=== PATIENT | male | born 1945 | race Caucasian/White ===

== ENCOUNTER → 2017-04-05 | Outpatient (CLI) | payer MEDICARE, OTHER ==
[~2017-04-05] VITALS: Ht 175.3 cm; Wt 91.0 kg
[~2017-04-05] MED LIST: ALBU8HFA IH; ALLO300 PO; AMLO-511 PO; ASPI81 PO; CETI-290 PO; FLUT16H NASAL; LOSA25TA21 PO; MONT10TA21 PO; OMEP20 PO; SIMV-261 PO; TRAM50TA4 PO; TRIA1TAB91 PO; UMEC1DIS IH
[2017-04-05 13:02] VITALS: BP 138/68
== END | disposition home or self-care (01) ==
LOC: SRCNTR 12:48
PROVIDERS: ATTEND Internal Medicine Critical Care Medicine
DX: J44.1 Chronic obstructive pulmonary disease with (acute) exacerbation (principal); J90 Pleural effusion, not elsewhere classified; I10 Essential (primary) hypertension; E78.2 Mixed hyperlipidemia; M10.00 Idiopathic gout, unspecified site; I72.3 Aneurysm of iliac artery; D50.0 Iron deficiency anemia secondary to blood loss (chronic)
CPT/HCPCS: G0463

== ENCOUNTER → 2017-06-28 | Outpatient (CLI) | payer MEDICARE, OTHER ==
[~2017-06-28] VITALS: Ht 175.3 cm; Wt 92.0 kg
[2017-06-28 11:36] VITALS: BP 115/67
== END | disposition home or self-care (01) ==
LOC: SRCNTR 11:34
PROVIDERS: ATTEND Internal Medicine Critical Care Medicine
DX: J90 Pleural effusion, not elsewhere classified (principal); J44.1 Chronic obstructive pulmonary disease with (acute) exacerbation; I10 Essential (primary) hypertension; E78.2 Mixed hyperlipidemia; M10.00 Idiopathic gout, unspecified site; I72.3 Aneurysm of iliac artery; D50.0 Iron deficiency anemia secondary to blood loss (chronic)
CPT/HCPCS: G0463

== ENCOUNTER → 2017-09-01 | Outpatient (CLI) | payer MEDICARE, OTHER ==
[~2017-09-01] VITALS: Ht 175.3 cm; Wt 90.0 kg
[2017-09-01 11:00] VITALS: BP 105/51
== END | disposition home or self-care (01) ==
LOC: SRCNTR 10:57
PROVIDERS: ATTEND Internal Medicine Critical Care Medicine
DX: J90 Pleural effusion, not elsewhere classified (principal); J94.8 Other specified pleural conditions; J44.1 Chronic obstructive pulmonary disease with (acute) exacerbation; I10 Essential (primary) hypertension; E78.2 Mixed hyperlipidemia; M10.00 Idiopathic gout, unspecified site; I72.3 Aneurysm of iliac artery; D50.0 Iron deficiency anemia secondary to blood loss (chronic)
CPT/HCPCS: G0463

== ENCOUNTER → 2017-12-08 | Outpatient (CLI) | payer MEDICARE, OTHER ==
[~2017-12-08] VITALS: Ht 175.3 cm; Wt 89.0 kg
[~2017-12-08] MED LIST changes: +CETI-170 PO; -CETI-290 PO; -LOSA25TA21 PO; +LOSA25TA41 PO
[2017-12-08 13:54] VITALS: BP 115/65
== END | disposition home or self-care (01) ==
LOC: SRCNTR 13:53
PROVIDERS: ATTEND Internal Medicine Critical Care Medicine
DX: Z23 Encounter for immunization (principal); J90 Pleural effusion, not elsewhere classified; J44.1 Chronic obstructive pulmonary disease with (acute) exacerbation; J92.0 Pleural plaque with presence of asbestos; I10 Essential (primary) hypertension; E78.2 Mixed hyperlipidemia; M10.00 Idiopathic gout, unspecified site; I72.3 Aneurysm of iliac artery; D50.0 Iron deficiency anemia secondary to blood loss (chronic); Z87.891 Personal history of nicotine dependence
CPT/HCPCS: 90471; 90686; G0463

== ENCOUNTER → 2018-03-20 | Outpatient (CLI) | payer MEDICARE, OTHER ==
[~2018-03-20] VITALS: Ht 175.3 cm; Wt 89.5 kg
[2018-03-20 13:41] VITALS: BP 112/60
== END | disposition home or self-care (01) ==
LOC: SRCNTR 13:29
PROVIDERS: ATTEND Internal Medicine Critical Care Medicine
DX: E78.5 Hyperlipidemia, unspecified (principal); I10 Essential (primary) hypertension; N19 Unspecified kidney failure
CPT/HCPCS: G0463

== ENCOUNTER → 2019-10-24 | Outpatient (CLI) | payer MEDICARE, OTHER ==
[~2019-10-24] VITALS: Ht 177.8 cm; Wt 88.0 kg
[~2019-10-24] MED LIST changes: +ALLO-45 PO; -ALLO300 PO; +AMLO-257 PO; -AMLO-511 PO; +ASPI-728 PO; -ASPI81 PO; -CETI-170 PO; +CETI-450 PO; +LOSA25TA21 PO; -LOSA25TA41 PO; +MONT-35 PO; -MONT10TA21 PO
[2019-10-24 11:02] VITALS: BP 120/60
== END | disposition home or self-care (01) ==
LOC: SRCNTR 10:59
PROVIDERS: ATTEND Internal Medicine Critical Care Medicine
DX: I12.9 Hypertensive chronic kidney disease with stage 1 through stage 4 chronic kidney disease, or unspecified chronic kidney disease (principal); N18.9 Chronic kidney disease, unspecified; E78.5 Hyperlipidemia, unspecified; M10.9 Gout, unspecified; D64.9 Anemia, unspecified; J61 Pneumoconiosis due to asbestos and other mineral fibers; I72.8 Aneurysm of other specified arteries; J90 Pleural effusion, not elsewhere classified; Z98.890 Other specified postprocedural states; Z87.891 Personal history of nicotine dependence; Z79.899 Other long term (current) drug therapy; Z88.0 Allergy status to penicillin
CPT/HCPCS: G0463

== ENCOUNTER → 2021-01-05 | Outpatient (CLI) | payer MEDICARE, OTHER ==
[~2021-01-05] VITALS: Ht 177.8 cm; Wt 87.7 kg
[~2021-01-05] MED LIST changes: +ASPI-1450 PO; -ASPI-728 PO
[2021-01-05 12:20] VITALS: BP 151/76
== END | disposition home or self-care (01) ==
LOC: SRCNTR 11:02
PROVIDERS: ATTEND Internal Medicine Critical Care Medicine
DX: J90 Pleural effusion, not elsewhere classified (principal); J44.1 Chronic obstructive pulmonary disease with (acute) exacerbation; I10 Essential (primary) hypertension; E78.2 Mixed hyperlipidemia; M10.00 Idiopathic gout, unspecified site; I72.3 Aneurysm of iliac artery; D50.0 Iron deficiency anemia secondary to blood loss (chronic); J92.9 Pleural plaque without asbestos; J64 Unspecified pneumoconiosis
CPT/HCPCS: G0463

== ENCOUNTER → 2021-05-06 | Outpatient (CLI) | payer MEDICARE, OTHER ==
[~2021-05-06] VITALS: Ht 177.8 cm; Wt 89.6 kg
[~2021-05-06] MED LIST changes: +LOSA-381 PO; -LOSA25TA21 PO
[2021-05-06 11:07] VITALS: BP 110/57
== END | disposition home or self-care (01) ==
LOC: SRCNTR 09:49
PROVIDERS: ATTEND Internal Medicine Critical Care Medicine
DX: I12.9 Hypertensive chronic kidney disease with stage 1 through stage 4 chronic kidney disease, or unspecified chronic kidney disease (principal); N18.9 Chronic kidney disease, unspecified; D63.1 Anemia in chronic kidney disease; E78.5 Hyperlipidemia, unspecified; M10.9 Gout, unspecified; J61 Pneumoconiosis due to asbestos and other mineral fibers
CPT/HCPCS: G0463

== ENCOUNTER → 2022-03-02 | Outpatient (CLI) | payer MEDICARE, OTHER ==
[~2022-03-02] VITALS: Ht 152.4 cm; Wt 89.0 kg
[~2022-03-02] MED LIST changes: -FLUT16H NASAL; +FLUT16SP NASAL; +TRAM-559 PO; -TRAM50TA4 PO; +TRIA-97 PO; -TRIA1TAB91 PO
[2022-03-02 08:48] VITALS: BP 140/67
== END | disposition home or self-care (01) ==
LOC: SRCNTR 08:35
PROVIDERS: ATTEND Internal Medicine
DX: J44.9 Chronic obstructive pulmonary disease, unspecified (principal); I10 Essential (primary) hypertension; E78.5 Hyperlipidemia, unspecified; M10.9 Gout, unspecified; I72.3 Aneurysm of iliac artery
CPT/HCPCS: G0463; Z7500

== ENCOUNTER → 2022-04-15 | Outpatient (CLI) | payer MEDICARE, OTHER ==
[~2022-04-15] VITALS: Ht 175.3 cm; Wt 91.6 kg
[2022-04-15 12:29] VITALS: BP 127/52
== END | disposition home or self-care (01) ==
LOC: SRCNTR 12:10
PROVIDERS: ATTEND Internal Medicine
DX: I10 Essential (primary) hypertension (principal); E78.5 Hyperlipidemia, unspecified; M10.9 Gout, unspecified; J44.9 Chronic obstructive pulmonary disease, unspecified; I72.2 Aneurysm of renal artery; D64.9 Anemia, unspecified
CPT/HCPCS: G0463; Z7500

== ENCOUNTER → 2022-06-04 | Outpatient (CLI) | payer MEDICARE, OTHER ==
[~2022-06-04] VITALS: Ht 152.4 cm; Wt 90.0 kg
[~2022-06-04] MED LIST changes: +ALBU18HF12 IH; -ALBU8HFA IH
[2022-06-04 12:58] VITALS: BP 127/57
== END | disposition home or self-care (01) ==
LOC: SRCNTR 12:37
PROVIDERS: ATTEND Internal Medicine Pulmonary Disease
DX: I12.9 Hypertensive chronic kidney disease with stage 1 through stage 4 chronic kidney disease, or unspecified chronic kidney disease (principal); N18.9 Chronic kidney disease, unspecified; E78.5 Hyperlipidemia, unspecified; M10.9 Gout, unspecified; D64.9 Anemia, unspecified; J44.9 Chronic obstructive pulmonary disease, unspecified
CPT/HCPCS: G0463; Z7500

== ENCOUNTER → 2022-11-25 | Outpatient (CLI) | payer MEDICARE, OTHER ==
[~2022-11-25] VITALS: Ht 152.4 cm; Wt 89.0 kg
[~2022-11-25] MED LIST changes: +INFLUENZA VIRUS VACCINE QVS 2023-24 (6MO+)/PF 60 MCG/0.5 ML SYRINGE IM. ONE; +IPRA3AMP24 NEB
[2022-11-25 09:02] VITALS: BP 134/57; PULSE 57; RESP 18; TEMP 97.9; O2SAT 98
== END | disposition home or self-care (01) ==
LOC: SRCNTR 08:51
PROVIDERS: ATTEND Internal Medicine
DX: J44.9 Chronic obstructive pulmonary disease, unspecified (principal); Z23 Encounter for immunization
CPT/HCPCS: 90686; 90471; G0463

== ENCOUNTER → 2023-06-28 | Outpatient (CLI) | payer MEDICARE, OTHER ==
[~2023-06-28] VITALS: Ht 152.4 cm; Wt 88.0 kg
[~2023-06-28] MED LIST changes: +ACET-3385 PO; +ATOR10TA PO; +BUDE10.7 IH; +DIPH-1243 PO; -INFLUENZA VIRUS VACCINE QVS 2023-24 (6MO+)/PF 60 MCG/0.5 ML SYRINGE IM. ONE; +LEVO75 PO; +LINA145C PO; +LOSA-382 PO; +MELA5TAB40 PO; +METO50 PO; -TRAM-559 PO; +TRAM50TA5 PO
[2023-06-28 10:11] VITALS: BP 124/62; PULSE 58; RESP 16; TEMP 97.7; O2SAT 93
== END | disposition home or self-care (01) ==
LOC: SRCNTR 09:33
PROVIDERS: ATTEND Internal Medicine
DX: J44.9 Chronic obstructive pulmonary disease, unspecified (principal); I10 Essential (primary) hypertension; E78.5 Hyperlipidemia, unspecified; I72.3 Aneurysm of iliac artery; J92.0 Pleural plaque with presence of asbestos
CPT/HCPCS: G0463; Z7500